=== PATIENT | male | born 1955 | race Caucasian/White ===

== ENCOUNTER 2020-03-07 19:49 | Inpatient (IN) | payer OTHER ==
[~2020-03-07] VITALS: Ht 180.3 cm; Wt 88.9 kg
--- NOTE | 2020-03-07 19:55 | NUR ---
THIS IS A 64Y M BIB EMS FROM [place] FOLLOWING [employer] FIRING TODAY AFTER "PASSING OUT" PT ARRIVES NADN, VSS, AO X4 AND AMBULATORY. PT CONNECTED TO ALL MONITORING AT THIS TIME. REPORT TO SONIA BASSCHEMICAL PROCESS ANALYST OF CARE
[2020-03-07 20:39] LABS: TROPONIN I 0.068 ng/mL (0.000-0.045)
--- NOTE | 2020-03-07 20:40 | NUR ---
Commercial Trailer Truck Driver RN attempted to investigate pacemaker x 5 and troubleshoot w/o success. RN called number of Rep and left a message. Gabriel Chi notified.
--- NOTE | 2020-03-07 21:37 | NUR ---
Coding Specialist [facility]
[2020-03-07] MEDS ORDERED: ACETAMINOPHEN 325 MG TABLET PO PRN (23:00)
[2020-03-07] MEDS ORDERED: BISACODYL 10 MG SUPP PR PRN (23:00)
[2020-03-07] MEDS ORDERED: POLYETHYLENE GLYCOL 17 GM PACKET PO PRN (23:00)
[2020-03-07] MEDS ORDERED: ONDANSETRON ODT 4 MG PO PRN (23:00)
--- NOTE | 2020-03-07 23:05 | NUR ---
Report given to Jannie BASS
--- NOTE | 2020-03-07 23:12 | NUR ---
Pt at US with tech. Plan to move to floor when pt returns to ED
[2020-03-07 23:50] VITALS: BP 116/71
[2020-03-08] MEDS ORDERED: ASPI81TA59 PO (01:16)
[2020-03-08] MEDS: CLINDAMYCIN PMX 600MG/50ML 50 ML IV SCH ×4 (01:28→23:12)
[2020-03-08] MEDS: HEPARIN 5,000 UNITS/ML, 1ML SQ SCH ×4 (01:28→23:12)
[2020-03-08] MEDS: SODIUM CHLORIDE FLUSH 10ML SYR IVF SCH ×3 (01:29→20:18)
[2020-03-08 01:45] VITALS: BP 108/74
[2020-03-08 04:59] LABS: BASOPHILS % (AUTO) 1 % (0-1); EOSINOPHILS % (AUTO) 2 % (1-7); LYMPHOCYTES % (AUTO) 27 % (22-44); MEAN CORPUSCULAR HEMOGLOBIN 28.7 pg (27.5-34.5); MEAN CORPUSCULAR HGB CONC 33.7 g/dL (33.2-36.2); MEAN PLATELET VOLUME 8.2 fL (7.4-10.4); MONOCYTES % (AUTO) 17 % (2-9); NEUTROPHILS % (AUTO) 53 % (42-75); PLATELET COUNT 120 x10^3/uL (130-400); RED BLOOD COUNT 5.36 x10^6/uL (4.38-5.82); RED CELL DISTRIBUTION WIDTH 15.3 % (9.4-14.8)
[2020-03-08 05:07] LABS: MD NO
[2020-03-08 05:16] LABS: ANION GAP 7 mmol/L (5-15); CALCIUM 8.5 mg/dL (8.5-10.1); CHLORIDE 108 mmol/L (98-107)
[2020-03-08 05:21] LABS: TROPONIN I 0.077 ng/mL (0.000-0.045)
[2020-03-08 07:21] VITALS: BP 102/67
[2020-03-08] MEDS: SENNA/DOCUSATE TABLET PO SCH ×2 (07:58→07:59)
[2020-03-08] MEDS: LOSARTAN 25MG TABLET PO SCH (12:01)
[2020-03-08] MEDS: METOPROLOL SUCCINATE 25 MG TAB.ER.24H PO SCH ×2 (12:01→20:18)
[2020-03-08 12:02] VITALS: BP 99/67
[2020-03-08 13:45] VITALS: BP 108/65
[2020-03-08 18:23] VITALS: BP 92/51
[2020-03-08 20:17] VITALS: BP 113/78
[2020-03-09 00:20] VITALS: BP 98/62
[2020-03-09] MEDS: CLINDAMYCIN PMX 600MG/50ML 50 ML IV SCH (06:43)
[2020-03-09] MEDS: HEPARIN 5,000 UNITS/ML, 1ML SQ SCH (06:46)
[2020-03-09 08:11] VITALS: BP 104/69
[2020-03-09] MEDS: LOSARTAN 25MG TABLET PO SCH (08:15)
[2020-03-09] MEDS: SODIUM CHLORIDE FLUSH 10ML SYR IVF SCH (08:16)
[2020-03-09] MEDS: SENNA/DOCUSATE TABLET PO SCH (08:16)
[2020-03-09] MEDS: METOPROLOL SUCCINATE 25 MG TAB.ER.24H PO SCH (08:16)
[2020-03-09] MEDS ORDERED: REGADENOSON 0.4 MG/5 ML SYRINGE ONE (09:07)
[2020-03-09] MEDS ORDERED: ATOR40TA78 PO (13:09)
[2020-03-09] MEDS ORDERED: METO25TA91 PO (13:09)
[2020-03-09] MEDS ORDERED: AMOX1TAB64 PO (13:09)
[2020-03-09] MEDS ORDERED: LOSA25TA25 PO (13:09)
[2020-03-09] MEDS ORDERED: ATORVASTATIN 40 MG TABLET PO SCH (21:00)
== END 2020-03-09 14:30 | disposition home or self-care (01) | DRG 281 ==
LOC: ED 20:49 → EDIP 22:47 → 5SO 23:42 → DCLOUNGE 03-09 14:19
PROVIDERS: ADMIT Internal Medicine; ATTEND Internal Medicine
DX: I21.4 Non-ST elevation (NSTEMI) myocardial infarction (principal); I47.2 Ventricular tachycardia; L03.211 Cellulitis of face; F17.210 Nicotine dependence, cigarettes, uncomplicated; I25.10 Atherosclerotic heart disease of native coronary artery without angina pectoris; I25.5 Ischemic cardiomyopathy; I50.9 Heart failure, unspecified; Z83.3 Family history of diabetes mellitus; Z95.1 Presence of aortocoronary bypass graft; Z95.810 Presence of automatic (implantable) cardiac defibrillator
CPT/HCPCS: 36415; 93017; C8929; 78452; 80048; 83735; 84443; 84484; 85025; 93005; 93880; G0378; J1644; J2785; Q9957; A9502